=== PATIENT | female | born 1995 ===

== ENCOUNTER → 2018-06-06 | Outpatient (CLI) | payer BC ==
[~2018-06-06] MED LIST: PREN-127 PO
[2018-06-06 11:19] LABS: PLATELET COUNT, AUTOMATED 310 K/uL (150-450)
== END ==
LOC: LAB 10:18
PROVIDERS: ATTEND Student in an Organized Health Care Education/Training Program
DX: Z34.01 Encounter for supervision of normal first pregnancy, first trimester (principal)
CPT/HCPCS: 36415; 81001; 85025; 86592; 86703; 86762; 86850; 86900; 86901; 87088; 87340; 87491; 87591

== ENCOUNTER → 2018-09-04 | Outpatient (CLI) | payer OTHER ==
[~2018-09-04] MED LIST changes: +OSE75 PO
--- NOTE | 2018-09-04 13:54 | RADIOLOGY IMAGING REPORT ---
[place] [facility] [place] Rashaun Teran : 1995 MR: [id number] V: [id number] EXAM DATE: ORDERING PHYSICIAN: MAY THOMPSON TECHNOLOGIST: Location: [facility] [place] Patient: Rashaun Teran : 1995 Visit/Account:[id number] Date of Sevice: 09/04/2018 EXAMINATION: Ultrasound transabdominal OB > 14 weeks with anatomic evaluation HISTORY: 20 week anatomical survey COMPARISON: None. TECHNIQUE: Transabdominal imaging was performed for assessment of the fetus and maternal pelvic structures. T ransvaginal imaging was not performed. FINDINGS: Placenta: Anterior without previa. Uterus: Gravid, otherwise normal Cervix: Long and closed. Maternal Ovaries: Not visualized. Maternal and other adnexa findings: Negative. Intrauterine gestations: One. presentation: Variable heart rate: Normal and regular at 147 bpm Amniotic fluid index: 13.24 cm Largest amniotic fluid pocket: 5.11 cm Gestational Parameters: BPD: 4.91 cm 20 weeks/ six days, 82nd percentile HC: 18.26 cm 20 weeks/ five days, 72nd percentile AC: 15.43 cm 20 weeks/ five days, 65 percent FL: 3.48 cm 21 weeks/ zero days, 76% Average ultrasound age (AUA): 20 weeks/six days, JESSENIA 01/16/2019 Estimated gestational age by JESSENIA: 20 weeks/zero days, JESSENIA 01/22/2019 Estimated weight (EFW): 376 grams +/- 55 grams EFW for JESSENIA: 86 percentile Anatomic Survey: Intracranial structures, 4-chamber heart, stomach, kidneys, urinary bladder, spine, 3-vessel cord and cord insertion are unremarkable. Two upper and two lower extremities visualized. Cardiac ventricula r outflow tracts, palate and lips are unremarkable in appearance. IMPRESSION: Single viable fetus in viable presentation with an estimated gestational age by measure ents of 20 weeks and six days. The estimated weight is 376 g which is equivalent to the 86th p ercentile Report Dictated By: Fabiana Walsh MD at 09/04/2018 1:37 PM Report E-Signed By: Fabiana Walsh MD at 09/04/2018 1:51 PM WSN:THA
== END ==
LOC: US 09:55
PROVIDERS: ATTEND Student in an Organized Health Care Education/Training Program
DX: Z02.9 Encounter for administrative examinations, unspecified (principal)

== ENCOUNTER → 2018-10-26 | Outpatient (CLI) | payer OTHER ==
[~2018-10-26] MED LIST changes: +DIPH0.5S2 IM
[2018-10-26 16:22] LABS: PLATELET COUNT, AUTOMATED 309 K/uL (150-450)
== END ==
LOC: LAB 14:25
PROVIDERS: ATTEND Student in an Organized Health Care Education/Training Program
DX: Z34.92 Encounter for supervision of normal pregnancy, unspecified, second trimester (principal)
CPT/HCPCS: 36415; 82950; 85025